=== PATIENT | male | born 1995 | race Caucasian/White ===

== ENCOUNTER 2020-10-06 14:54 | Emergency (ER) | payer SELFPAY ==
[~2020-10-06] VITALS: Ht 182.9 cm; Wt 72.7 kg
[~2020-10-06 14:54] MED LIST: NAPR-683 PO
[2020-10-06] MEDS ORDERED: DOXY100T PO (16:44)
--- NOTE | 2020-10-06 16:44 | ED.ADGEN ---
Past Medical History Past Medical History: Bipolar Additional Past Medical Histor: ADHD, scoliosis Past Surgical History: Knee Replacement, Tonsillectomy Additional Past Surgical Histo: ADENOIDECTOMY, TUES TO EARS Smoking Status: Current Every Day Smoker Alcohol Use: Occasionally Drug Use: None General Adult EDM: Chief Complaint: OTHER COMPLAINTS HPI: HPI: Patient is a 25 year old male, accompanied by his mother, who presents to the emergency room with complaints of coughing up blood after awakening today. He also complains of right upper posterior dental pain and swelling that began today. Patient reports that he has been nasal congestion with frequent throat clearing for several weeks. He also reports having generalized headache that is described as pressure behind his eyes for the last month. Patient reports that the headaches began after he had the osorio of a car fall on top of his head while he was changing oil. Patient denies any loss of consciousness without injury, he denies any numbness, tingling, or vision changes. Patient denies any ringing in his ears or ear pain. He also denies any fever, cough, shortness of breath, chest pain, abdominal pain, nausea, vomiting, or diarrhea. He currently rates the pain in his head a 10 out of 10 on the pain scale, he denies any alleviating or exacerbating factors. Patient states that he has continued to cough up some clear blood streaked sputum since he is arrived to the emergency room. He denies any recent nosebleeds. Review of Systems: Review of Systems: Complete ROS is negative unless otherwise noted in HPI. Allergies: Allergies: Allergies Coded Allergies Type Severity Reaction Last Updated Verified No Known Drug Allergies 11/01/14 No Physical Exam: PE: See Above Constitutional: Well developed, well nourished, no acute distress, non-toxic appearance. [] HENT: Normocephalic, atraumatic, bilateral external ears normal, cobblestone appearance of posterior pharynx with mild erythema, no tonsils present; there is mild edema to the posterior upper palate on the right with large amount of dental decay and broken teeth in the right upper quadrant, no visible or palpable dental abscess; bilateral nasal turbinates are erythematous and severely edematous consistent with rhinitis, nasal congestion is present Eyes: PERRLA, EOMI, conjunctiva normal, no discharge. [] Neck: Normal range of motion, supple, nontender,, no stridor. [] Cardiovascular:Heart rate regular rhythm Lungs & Thorax: Respirations even and unlabored, no retractions, no respiratory distress Skin: Warm, dry, no erythema, no rash. [] Extremities: No cyanosis, ROM intact, no edema. [] Neurologic: Alert and oriented X 3, no focal deficits noted. [] Psychologic: Affect normal, judgement normal, mood normal. [] Current Patient Data: Vital Signs: Vital Signs Date Time Temp Pulse Resp B/P (MAP) Pulse Ox O2 Delivery O2 Flow Rate FiO2 10/06/20 17:05 92 16 138/81 (100) 97 Room Air 10/06/20 15:40 98.1 98.1 EKG: EKG: [] Heart Score: C/O Chest Pain: No Risk Factors: Risk Factors: DM, Current or recent (<one month) smoker, HTN, HLP, family history of CAD, obesity. Risk Scores: Score 0 - 3: 2.5% MACE over next 6 weeks - Discharge Home Score 4 - 6: 20.3% MACE over next 6 weeks - Admit for Clinical Observation Score 7 - 10: 72.7% MACE over next 6 weeks - Early Invasive Strategies Radiology/Procedures: Radiology/Procedures: [] Course & Med Decision Making: Course & Med Decision Making Pertinent Labs and Imaging studies reviewed. (See chart for details) [] Dragon Disclaimer: [place] Disclaimer: This electronic medical record was generated, in whole or in part, using a voice recognition dictation system. Departure Departure Impression: Primary Impression: Infected dental caries Additional Impression: Rhinitis Disposition: 01 DC HOME SELF CARE/HOMELESS Condition: STABLE Referrals: NO PCP (PCP) Patient Instructions: Allergic Rhinitis, Dental Abscess Additional Instructions: Fill the prescription(s) and use as directed. Recommend that you take 10 mg of generic Zyrtec (cetirizine) or Claritin at bedtime and use over the counter Flonase (fluticasone) nasal spray 2 sprays each nostril once daily in the morning. You may take Tylenol or ibuprofen as needed for pain/fever. Increase clear fluids. Avoid triggers such as smoke, fragrance, dust, and pollen. Follow up with dentist using the referral list provided. Return to the ER if symptoms worsen. Follow-up with one of the primary care providers listed below if sympto ms persist, return to the ER if symptoms worsen or fever develops. [facility] [address] [place] [address] [facility] [address] [place] [address] [facility] [address] [facility] [place] [address] [facility] [address] [place] [address] [facility] [address] [place] [address] [address] [address] [place] [address] [facility] [address] [place] [address] [facility] [address] [place] [address] [facility] [address] [place] [address] [facility] [address] [place] [address] Scripts Doxycycline Hyclate (DOXYCYCLINE HYCLATE) 100 Mg Tablet 1 TAB PO BID for 10 Days, #20 TAB 0 Refills Prov: CHRISTINA GARNER APRN 10/06/20 Problem Qualifiers Additional Impression: Rhinitis Rhinitis type: unspecified Qualified Codes: J31.0 - Chronic rhinitis CHRISTINA GARNER APRN Oct 06, 2020 16:44
[2020-10-06 17:05] VITALS: BP 138/81
== END 2020-10-06 17:08 | disposition home or self-care (01) ==
LOC: ER 14:54
DX: K02.9 Dental caries, unspecified (principal); R09.81 Nasal congestion; R60.0 Localized edema; J31.0 Chronic rhinitis; F31.9 Bipolar disorder, unspecified; F17.200 Nicotine dependence, unspecified, uncomplicated; Z98.890 Other specified postprocedural states; Z90.89 Acquired absence of other organs
CPT/HCPCS: 99283

== ENCOUNTER 2021-06-19 16:49 | Emergency (ER) | payer SELFPAY ==
[~2021-06-19] VITALS: Ht 182.9 cm; Wt 73.0 kg
[~2021-06-19 16:49] MED LIST changes: +DOXY100T PO
--- NOTE | 2021-06-19 17:44 | RAD ---
XR HAND_RIGHT 3 VIEWS DATE: 06/19/2021 5:36 PM INDICATION: Laceration #2 digit MIP joint area lateral aspect rule out foreign body COMPARISON: None. FINDINGS: Bones: There is no evidence of acute fracture or dislocation. Joints: The joint spaces are normal. Miscellaneous: No radiopaque foreign bodies. IMPRESSION: No acute fracture or radiopaque foreign body. Electronically signed by: Nicola Lion MD (06/19/2021 5:41 PM) NUZHAT
[2021-06-19] MEDS: DIPH,PERTUSS(ACELL),TET VAC/PF 0.5 ML SYRINGE. VAX IM ONE (17:52)
[2021-06-19] MEDS: BACITRACIN TOPICAL OINT PACKET. TP ONE (17:52)
[2021-06-19] MEDS: LIDOCAINE 2% Multi-Dose 20 ML VIAL. IJ ONE (17:53)
[2021-06-19] MEDS: IBUPROFEN 200 MG TABLET. PO ONE (17:53)
--- NOTE | 2021-06-19 18:06 | PHYS DOC ---
Past Medical History Past Medical History: Bipolar Additional Past Medical Histor: ADHD, scoliosis (JONATHAN ARCINIEGA APRN) Past Surgical History: Other Additional Past Surgical Histo: RIGHT KNEE (JONATHAN ARCINIEGA APRN) Smoking Status: Current Every Day Smoker Additional Information: 1/2 PACK Alcohol Use: Occasionally Drug Use: None (JONATHAN ARCINIEGA APRN) General Adult EDM: Chief Complaint: LACERATION/AVULSION HPI: HPI: Patient is a 26-year-old male presents to the emergency department the chief complaint of laceration to his right hand just prior to arrival. Patient reports she was washing dishes when he cut his hand on a nikole jar that had a chip around its opening. Patient reports his last tetanus immunization was greater than 5 years ago. Patient reports pain at the laceration site, denies loss of sensation distally, denies loss of movement, reports it bled right away, reports he washed it with water and wrapped it with a bandage and came straight to the emergency department. Patient denies taking any medications prior to arrival to the emergency department. Patient denies taking prescription medications or [id number] medications at home. Denies allergies to medications. Denies other physical complaints or physical concerns. (JONATHAN ARCINIEGA APRN) Review of Systems: Review of Systems: 14 body systems of review of systems have been reviewed. See HPI for pertinent positives and negative responses, otherwise all other systems are negative, nonpertinent or noncontributory. Constitutional: Negative except as outlined in HPI above. Skin: Negative except as outlined in HPI above. Eyes: Negative except as outlined in HPI above. HENT: Negative except as outlined in HPI above. Respiratory: Negative except as outlined in HPI above. Cardiovascular: Negative except as outlined in HPI above. GI: Negative except as outlined in HPI above. : Negative except as outlined in HPI above. Musculoskeletal: Negative except as outlined in HPI above. Integument: Negative except as outlined in HPI above. Neurologic: Negative except as outlined in HPI above. Endocrine: Negative except as outlined in HPI above. Lymphatic: Negative except as outlined in HPI above. Psychiatric: Negative except as outlined in HPI above. (JONATHAN ARCINIEGA APRN) Heart Score: C/O Chest Pain: No Risk Factors: Risk Factors: DM, Current or recent (<one month) smoker, HTN, HLP, family history of CAD, obesity. Risk Scores: Score 0 - 3: 2.5% MACE over next 6 weeks - Discharge Home Score 4 - 6: 20.3% MACE over next 6 weeks - Admit for Clinical Observation Score 7 - 10: 72.7% MACE over next 6 weeks - Early Invasive Strategies (JONATHAN ARCINIEGA APRN) Current Medications: Current Medications Medications (Trade) Dose Ordered Sig/Yaritza Start Time Stop Time Status Last Admin Dose Admin Bacitracin (Bacitracin Zinc Oint Pkt) 1 pkt 1X ONCE 06/19/21 17:30 06/19/21 17:31 DC 06/19/21 17:52 1 PKT Diphtheria/ Tetanus/Acell Pertussis (ADACEL TDap SYRINGE) 0.5 ml ONCE ONCE 06/19/21 17:30 06/19/21 17:31 DC 06/19/21 17:52 0.5 ML Ibuprofen (Motrin) 600 mg 1X ONCE 06/19/21 17:30 06/19/21 17:31 DC 06/19/21 17:53 600 MG Lidocaine HCl (Lidocaine 2% 20ml Vial) 20 ml 1X ONCE 06/19/21 17:30 06/19/21 17:31 DC 06/19/21 17:53 20 ML (JONATHAN ARCINIEGA APRN) Allergies: Allergies: Allergies Coded Allergies Type Severity Reaction Last Updated Verified No Known Drug Allergies 11/01/14 No (JONATHAN ARCINIEGA APRN) Physical Exam: PE: Constitutional: Well developed, well nourished, no acute distress, non-toxic appearance. 26-year-old male in no apparent distress. HENT: Normocephalic, atraumatic. Eyes: Conjunctiva normal, no discharge. Neck: Normal range of motion, no stridor. Cardiovascular: No cyanosis appreciated, distal cap refill less than 2 seconds. Lungs & Thorax: Patient is in no respiratory distress, no audible adventitious lung sounds appreciated. Abdomen: Nontender, no abnormalities noted. Skin: Warm, dry, no erythema, no rash. See extremity note for focused skin examination. Back: No tenderness, no deformities. Extremities: No tenderness, no cyanosis, no clubbing, ROM intact, no edema. Except for right hand, 2.5 cm C-shaped partial-thickness skin laceration to the lateral aspect hand near MIP joint surface. Laceration does not extend into julisa pose tissue. Distal cap refill less than 2 seconds, bilateral radial pulses 2+, full flexion and extension abduction abduction of fingers of the right hand, no swelling or deformities appreciated. No paresthesias appreciated. Neurologic: Alert and oriented X 3, normal motor function, normal sensory function, no focal deficits noted. Psychologic: Affect normal, judgement normal, mood normal. (JONATHAN ARCINIEGA APRN) Current Patient Data: Vital Signs: Vital Signs Date Time Temp Pulse Resp B/P (MAP) Pulse Ox O2 Delivery O2 Flow Rate FiO2 06/19/21 16:55 98.4 95 16 135/77 (96) 98 Room Air 98.4 (JONATHAN ARCINIEGA APRN) EKG: EKG: [] (JONATHAN ARCINIEGA APRN) Radiology/Procedures: Radiology/Procedures: SEX: M EXAM STATUS: PRE ER ORD. PHYSICIAN: JONATHAN ARCINIEGA APRN REASON: Laceration #2 digit MIP joint area lateral aspect rule out foreign body PROCEDURE: HAND RIGHT 3V XR HAND_RIGHT 3 VIEWS DATE: 06/19/2021 5:36 PM INDICATION: Laceration #2 digit MIP joint area lateral aspect rule out foreign body COMPARISON: None. FINDINGS: Bones: There is no evidence of acute fracture or dislocation. Joints: The joint spaces are normal. Miscellaneous: No radiopaque foreign bodies. IMPRESSION: No acute fracture or radiopaque foreign body. Electronically signed by: Nicola Lion MD (06/19/2021 5:41 PM) NUZHAT (JONATHAN ARCINIEGA APRN) Course & Med Decision Making: Course & Med Decision Making Pertinent Labs and Imaging studies reviewed. (See chart for details) 26-year-old male, vital signs reviewed, reports to the emergency department concerning laceration to right hand while washing dishes just prior to arrival to the emergency department. Patient's physical examination presentation is consistent with patient's explanation of events. Patient denies homicidal jones icidal ideations. Patient reported his tetanus immunization was greater than 5 years ago, will bring up-to-date today in the emergency department with Adacel Tdap. Will order x-ray to rule out foreign body. See laceration repair note. No foreign body appreciated from x-ray report of right hand. Patient gave verbal understanding of discharge home instructions, laceration care, sutures out in 7 to 10 days, follow-up with primary care, return to ER precautions or concerns, patient had no further questions or concerns, is amenable to ED discharge planning, discussed with the patient all findings and diagnostic testing as well as the need to follow-up with their primary care provider for further evaluation and treatment or return to the ED if any new or worsening symptoms. Strict return precautions were also discussed at length, the patient voiced understanding and agreement with the discharge planning. The patient was nontoxic in appearance, in no apparent distress, and hemodynamically stable at the time of disposition. (JONATHAN ARCINIEGA APRN) Course & Med Decision Making Patients Care and treatment plan provided by ER Nurse Practitioner. I was available for consult. Patient's chart reviewed. (ROBBIE RM DO) Dragon Disclaimer: Dragon Disclaimer: This electronic medical record was generated, in whole or in part, using a voice recognition dictation system. (JONATHAN ARCINIEGA APRN) Laceration Repair Lac Repair Indication: Laceration right hand Time: 1814 Confirmed: Patient, procedure, side, and site correct. Consent: Patient, has given verbal consent. Description/repair Procedure: The patient was placed in the appropriate position and anesthesia around the achieved with 3 cc 2% lidocaine without epinephrine. The area was then cleansed with chlorhexidine scrub brush, rinsed with 500 cc normal saline. The laceration was closed for foreign bodies, there were no visual foreign b odies. The laceration was closed with 5 each interrupted sutures using 5-0 nylon the wound area was then dressed with bacitracin and bandage by ED nursing staff. Complexity: Single layer. Post procedure exam: Circulation, motor, sensory examination intact, bleeding controlled. Total repaired wound length: 2.5 cm. Other Items: No other items The patient tolerated the procedure well. Complications: There were no complications. Performed by: Jonathan Mukherjee, HOSPICE DIRECTOR-C Supervision: Dr. Rm was present for consult regarding the critical aspects of the procedure including closure and post procedure exam. Total time: 15 minutes. (JONATHAN ARCINIEGA APRN) Departure Departure Impression: Primary Impression: Laceration of right hand Qualified Codes: S61.411A - Laceration without foreign body of right hand, initial encounter Disposition: HOME / SELF CARE / HOMELESS Condition: GOOD Referrals: NO PCP (PCP) Patient Instructions: Laceration Care, Adult Additional Instructions: You were seen today in the emergency department for laceration to your right hand, this required 5 sutures that will require removal in 7 to 10 days. Please keep the suture site clean and dry, do not soak your hands in water or other liquids for any length of time. However please wash your laceration site gently with soap and water and pat dry, apply antibiotic ointment and bandage until sutures are removed in 7 to 10 days. Follow-up with your primary care physician for suture removal and reevaluation of sutured laceration. Your tetanus immunization has been brought up to date today in the emergency department with a medication called Adacel/Tdap, please update your immunization records accordingly. Return to the emergency department for worsening symptoms or other concerns. Thank you for visiting our Emergency Department. It was a pleasure taking care of you today in the emergency department and we appreciate you trusting us with your care. If any additional problems come up don't hesitate to return to visit us. Please follow up with your primary care provider so they can plan additional care if needed and know about the problem that you had. If symptoms worsen come back to the Emergency Department. Any concerning symptoms that start such as chest pain, shortness of air, weakness or numbness on one side of the body, running high fevers or any other concerning symptoms return to the ER. EMERGENCY DEPARTMENT GENERAL DISCHARGE INSTRUCTIONS Thank you for coming to [facility] Emergency Department (ED) today and trusting us with you care. We trust that you had a positive experience in our Emergency Department. If you wish to speak to the department management, you may call the Director at [phone]. YOUR FOLLOW UP INSTRUCTIONS ARE FOLLOWS: 1. Do you have a private Doctor? If you do not have a private doctor, please ask for a resource list of physicians or clinics that may be able to assist you with follow up care. 2. The Emergency Physicain has interpreted your x-rays. The X-Ray specialist will also review them. If there is a change in the findings, you will be notified in 48 hours when at all possible. 3. A lab test or culture has been done, your results will be reviewed and you will be notified if you need a change in treatment. ADDITIONAL INSTRUCTIONS AND INFORMATION: 1. Your care today has been supervised by a physician who is specially trained in emergency care. Many problems require more than one evaluation for a complete diagnosis and treatment. We recommend that you schedule your follow up appointment as recomme nded to ensure complete treatment of you illness or injury. If you are unable to obtain follow up care and continue to have a problem, or if your condition worsens, we recommend that you return to the ED. 2. We are not able to safely determine your condition over the phone nor are we able to give sound medical advice over the phone. For these safety reasons, if you call for medical advice we will ask you to come to the ED for further evaluation. 3. If you have any questions regarding these discharge instructions please call the ED at [phone]. SAFETY INFORMATION: In the interest of safety, wellness, and injury prevention; we encourage you to wear your sealbelt, if you smoke; quite smoking, and we encourage family to use a protective helmet for bicycling and other sporting events that present an increased risk for head injury. IF YOUR SYMPTOMS WORSEN OR NEW SYMPTOMS DEVELOP, OR YOU HAVE CONCERNS ABOUT YOUR CONDITION; OR IF YOUR CONDITION WORSENS WHILE YOU ARE WAITING FOR YOUR FOLLOW UP APPOINTMENT; EITHER CONTACT YOUR PRIMARY CARE DOCTOR, THE PHYSICIAN WHOSE NAME AND NUMBER YOU WERE GIVEN, OR RETURN TO THE ED IMMEDIATELY. JONATHAN ARCINIEGA APRN Jun 19, 2021 18:05 ROBBIE RM DO Jun 20, 2021 03:40
[2021-06-19 18:50] VITALS: BP 126/74
== END 2021-06-19 18:50 | disposition home or self-care (01) ==
LOC: ER 16:49
DX: S61.411A Laceration without foreign body of right hand, initial encounter (principal); F31.9 Bipolar disorder, unspecified; F90.9 Attention-deficit hyperactivity disorder, unspecified type; F17.200 Nicotine dependence, unspecified, uncomplicated; Y28.8XXA Contact with other sharp object, undetermined intent, initial encounter; Y93.89 Activity, other specified; Y92.89 Other specified places as the place of occurrence of the external cause; Y99.8 Other external cause status
CPT/HCPCS: 12001; 73130; 90471; 90715; 99283-25

== ENCOUNTER 2021-06-26 17:07 | Emergency (ER) | payer SELFPAY ==
[~2021-06-26] VITALS: Ht 182.9 cm; Wt 72.2 kg
[2021-06-26 17:20] VITALS: BP 125/71
--- NOTE | 2021-06-26 17:51 | PHYS DOC ---
Past Medical History Past Medical History: Bipolar Additional Past Medical Histor: ADHD, scoliosis Past Surgical History: No Surgical History Additional Past Surgical Histo: RIGHT KNEE Smoking Status: Never Smoker Alcohol Use: None Drug Use: None General Adult EDM: Chief Complaint: SUTURE/STAPLE REMOVAL HPI: HPI: Patient is a 26 year old male who presents with suture removal. Wound has hea led appropriately. Patient denies all complaints. No signs of infection Review of Systems: Review of Systems: ROS At least 10 ROS systems have been reviewed and are negative except as documented in the HPI. General: Negative except as outlined in HPI above. Skin: Negative except as outlined in HPI above. HEENT: Negative except as outlined in HPI above. Neck: Negative except as outlined in HPI above. Respiratory: Negative except as outlined in HPI above.. Cardiovascular: Negative except as outlined in HPI above. Abdomen: Negative except as outlined in HPI above. : Negative except as outlined in HPI above. Back/MSK: Negative except as outlined in HPI above. Neuro: Negative except as outlined in HPI above. Psych: Negative except as outlined in HPI above. Heart Score: C/O Chest Pain: No Risk Factors: Risk Factors: DM, Current or recent (<one month) smoker, HTN, HLP, family history of CAD, obesity. Risk Scores: Score 0 - 3: 2.5% MACE over next 6 weeks - Discharge Home Score 4 - 6: 20.3% MACE over next 6 weeks - Admit for Clinical Observation Score 7 - 10: 72.7% MACE over next 6 weeks - Early Invasive Strategies Allergies: Allergies: Allergies Coded Allergies Type Severity Reaction Last Updated Verified No Known Drug Allergies 06/26/21 No Physical Exam: PE: Constitutional: Well developed, well nourished, no acute distress, non-toxic appearance. [] HENT: Normocephalic, atraumatic, bilateral external ears normal, oropharynx moist, no oral exudates, nose normal. [] Eyes: PERRLA, EOMI, conjunctiva normal, no discharge. [] Neck: Normal range of motion, no tenderness, supple, no stridor. [] Cardiovascular:Heart rate regular rhythm, no murmur [] Lungs & Thorax: Bilateral breath sounds clear to auscultation [] Abdomen: Bowel sounds normal, soft, no tenderness, no masses, no pulsatile mas ses. [] Skin: Warm, dry, no erythema, no rash. [] Back: No tenderness, no CVA tenderness. [] Extremities: No tenderness, no cyanosis, no clubbing, ROM intact, no edema. [] Neurologic: Alert and oriented X 3, normal motor function, normal sensory function, no focal deficits noted. [] Psychologic: Affect normal, judgement normal, mood normal. [] Current Patient Data: Vital Signs: Vital Signs Date Time Temp Pulse Resp B/P (MAP) Pulse Ox O2 Delivery O2 Flow Rate FiO2 06/26/21 17:20 97.8 98 16 125/71 (89) 99 Room Air 97.8 EKG: EKG: [] Radiology/Procedures: Radiology/Procedures: [] Course & Med Decision Making: Course & Med Decision Making Pertinent Labs and Imaging studies reviewed. (See chart for details) [] 26-year-old male presents with suture removal. No signs of infection. Wound has healed appropriately. Patient denies all complaints. Dragon Disclaimer: Dragon Disclaimer: This electronic medical record was generated, in whole or in part, using a voice recognition dictation system. Departure Departure Impression: Primary Impression: Visit for suture removal Disposition: HOME / SELF CARE / HOMELESS Condition: STABLE Referrals: NO PCP (PCP) Patient Instructions: Suture Removal Additional Instructions: EMERGENCY DEPARTMENT GENERAL DISCHARGE INSTRUCTIONS Thank you for coming to [facility] Emergency Department (ED) today and trusting us with you care. We trust that you had a positive experience in our Emergency Department. If you wish to speak to the department management, you may call the Director at [phone]. YOUR FOLLOW UP INSTRUCTIONS ARE FOLLOWS: 1. Do you have a private Doctor? If you do not have a private doctor, please ask for a resource list of physicians or clinics that may be able to assist you with follow up care. 2. The Emergency Physicain has interpreted your x-rays. The X-Ray specialist will also review them. If there is a change in the findings, you will be notified in 48 hours when at all possible. 3. A lab test or culture has been done, your results will be reviewed and you will be notified if you need a change in treatment. ADDITIONAL INSTRUCTIONS AND INFORMATION: 1. Your care today has been supervised by a physician who is specially trained in emergency care. Many problems require more than one evaluation for a complete diagnosis and treatment. We recommend that you schedule your follow up appointment as recommended to ensure complete treatment of you illness or injury. If you are unable to obtain follow up care and continue to have a problem, or if your condition worsens, we recommend that you return to the ED. 2. We are not able to safely determine your condition over the phone nor are we able to give sound medical advice over the phone. For these safety reasons, if you call for medical advice we will ask you to come to the ED for further evaluation. 3. If you have any questions regarding these discharge instructions please call the ED at [phone]. SAFETY INFORMATION: In the interest of safety, wellness, and injury prevention; we encourage you to wear your sealbelt, if you smoke; quite smoking, and we encourage family to use a protective helmet for bicycling and other sporting events that present an increased risk for head injury. IF YOUR SYMPTOMS WORSEN OR NEW SYMPTOMS DEVELOP, OR YOU HAVE CONCERNS ABOUT YOUR CONDITION; OR IF YOUR CONDITION WORSENS WHILE YOU ARE WAITING FOR YOUR FOLLOW UP APPOINTMENT; EITHER CONTACT YOUR PRIMARY CARE DOCTOR, THE PHYSICIAN WHOSE NAME AND NUMBER YOU WERE GIVEN, OR RETURN TO THE ED IMMEDIATELY. COLLETTE KING APRN Jun 26, 2021 17:51
== END 2021-06-26 18:08 | disposition home or self-care (01) ==
LOC: ER 17:07
DX: S61.411D Laceration without foreign body of right hand, subsequent encounter (principal); F31.9 Bipolar disorder, unspecified; F90.9 Attention-deficit hyperactivity disorder, unspecified type; X58.XXXD Exposure to other specified factors, subsequent encounter
CPT/HCPCS: 99281

== ENCOUNTER 2021-07-30 10:37 | Emergency (ER) | payer SELFPAY ==
[~2021-07-30] VITALS: Ht 185.4 cm; Wt 75.1 kg
[2021-07-30 10:49] VITALS: BP 94/64
[2021-07-30 11:26] LABS: BILIRUBIN,URINE NEGATIVE (NEG); CLARITY,URINE CLEAR; COLOR,URINE YELLOW; NITRITE,URINE NEGATIVE (NEG); PH,URINE 7.5 (<5.0-8.0); PROTEIN,URINE NEGATIVE (NEG-TRACE); UROBILINOGEN,URINE 0.2 mg/dL (0.2 mg/dL)
[2021-07-30] MEDS ORDERED: valACYclovir 500 MG TABLET. PO ONE (11:30)
[2021-07-30] MEDS ORDERED: cefTRIAXone IM 500 MG VIAL. IM ONE (11:30)
[2021-07-30] MEDS ORDERED: DOXYCYCLINE HYCLATE 100 MG TABLET PO ONE (11:30)
--- NOTE | 2021-07-30 11:31 | PHYS DOC ---
Past Medical History Past Medical History: Bipolar Additional Past Medical Histor: ADHD, scoliosis Past Surgical History: No Surgical History Additional Past Surgical Histo: RIGHT KNEE Smoking Status: Never Smoker Alcohol Use: None Drug Use: None General Adult EDM: Chief Complaint: ITCHING HPI: HPI: Patient is a 26 year old male who presents with genital itching and dysuria for the past 3 days. Patient states he noticed some discomfort on urination beginning 3 days ago, but thought maybe he had a UTI. 2 days ago, he noticed an itching rash to his testicles and penis. Today, the dysuria intensified, leading him to present to the ER for evaluation. He also noticed a painful rash to his inner lower lip and sore throat beginning today. Patient reports he has had 2 sexual partners in the past 6 months. The first partner, which she reports he last had intercourse with over 3 months ago, told him recently that she was tested positively and treated for chlamydia. His most recent partner told him she tested positive for gonorrhea recently as well. Patient has never had a rash similar to this in the past. Patient denies fever, chills, urethral discharge, hematuria, testicular pain or swelling. Review of Systems: Review of Systems: Constitutional: Denies fever, chills or generalized weakness Eyes: Denies change in visual acuity, visual field deficits or discharge HENT: Denies ear pain, nasal congestion or sore throat Respiratory: Denies cough or shortness of breath Cardiovascular: Denies chest pain, palpitations or edema GI: Denies abdominal pain, nausea, vomiting, bloody stools or diarrhea : See HPI Musculoskeletal: Denies back pain or joint pain Integument: See HPI Neurologic: Denies headache, focal weakness or sensory changes Heart Score: C/O Chest Pain: No Allergies: Allergies: Allergies Coded Allergies Type Severity Reaction Last Updated Verified No Known Drug Allergies 06/26/21 No Physical Exam: PE: Constitutional: Well developed, well nourished, no acute distress, non-toxic appearance. HENT: Normocephalic, atraumatic, oropharynx moist, no oral exudates, no oropharyngeal erythema, slightly erythematous and raised vesicles noted to mucosa of interior lower lip, nose without deformity or discharge. Eyes: PERRLA, EOMI, conjunctiva normal, no discharge. Cardiovascular: Heart rate regular rhythm, no murmur. Lungs & Thorax: Bilateral breath sounds clear to auscultation. Abdomen: Bowel sounds normal, soft, no tenderness, no masses, no pulsatile masses. Genital: Penile shaft as well as scrotum have painful and erythematous ulcerative rash, base of the shaft of the penis also has vesicular rash, no urethral discharge, no testicular swelling or masses. Skin: See above for genital skin exam. Skin otherwise warm, dry, no erythema. Neurologic: Alert and oriented x4, steady and symmetrical gait, no focal deficits noted. Current Patient Data: Labs: Laboratory Tests Test 07/30/21 11:08 Urine Collection Type Void Urine Color Yellow Urine Clarity Clear Urine pH 7.5 (<5.0-8.0) Urine Specific [place] 1.020 (1.000-1.030) Urine Protein Negative mg/dL (NEG-TRACE) Urine Glucose (UA) Negative mg/dL (NEG) Urine Ketones (Stick) Negative mg/dL (NEG) Urine Blood Negative (NEG) Urine Nitrite Negative (NEG) Urine Bilirubin Negative (NEG) Urine Urobilinogen Dipstick 0.2 mg/dL (0.2 mg/dL) Urine Leukocyte Esterase Negative (NEG) Urine RBC 0 /HPF (0-2) Urine WBC Occ /HPF (0-4) Urine Squamous Epithelial Cells Occ /LPF Urine Bacteria 0 /HPF (0-FEW) Vital Signs: Vital Signs Date Time Temp Pulse Resp B/P (MAP) Pulse Ox O2 Delivery O2 Flow Rate FiO2 07/30/21 10:49 97.8 72 12 94/64 (74) 97 Room Air 97.8 Course & Med Decision Making: Course & Med Decision Making Pertinent Labs and Imaging studies reviewed. (See chart for details) Patient is an otherwise healthy 26-year-old male who has had multiple STI exposures in the past 6 months with active rash and dysuria. Patient will being treated empirically for gonorrhea/chlamydia as well as genital herpes. Urine sample obtained, blood work obtained to test for gonorrhea, chlamydia, syphilis, herpes simplex 1 & 2. Patient was given first dose of oral medications in the department. He is instructed to abstain from sex until his treatment is complete. He was also counseled on safe sex practices. Patient understands and is agreeable to discharge plan. Dragon Disclaimer: Dragon Disclaimer: This electronic medical record was generated, in whole or in part, using a voice recognition dictation system. Departure Departure Impression: Primary Impression: Gonococcal urethritis in male Additional Impression: Herpetic lesions Disposition: HOME / SELF CARE / HOMELESS Condition: STABLE Referrals: NO PCP (PCP) Patient Instructions: Genital Herpes, Herpes Labialis, Sexually Transmitted Disease, [id number] Additional Instructions: EMERGENCY DEPARTMENT GENERAL DISCHARGE INSTRUCTIONS Thank you for coming to [facility] Emergency Department (ED) today and trusting us with you care. We trust that you had a positive experience in our Emergency Department. If you wish to speak to the department management, you may call the Director at . YOUR FOLLOW UP INSTRUCTIONS ARE FOLLOWS: 1. Do you have a private doctor? If you do not have a private doctor, please ask for a resource list of physicians or clinics that may be able to assist you with follow up care. 2. A lab test or culture has been done, your results will be reviewed and you will be notified if you need a change in treatment. ADDITIONAL INSTRUCTIONS AND INFORMATION: 1. Your care today has been supervised by a physician who is specially trained in emergency care. Many problems require more than one evaluation for a complete diagnosis and treatment. We recommend that you schedule your follow up appointment as recommended to ensure complete treatment of you illness or injury. If you are unable to obtain follow up care and continue to have a problem, or if your condition worsens, we recommend that you return to the ED. 2. We are not able to safely determine your condition over the phone nor are we able to give sound medical advice over the phone. For these safety reasons, if you call for medical advice we will ask you to come to the ED for further evaluation. 3. If you have any questions regarding these discharge instructions please call the ED at . SAFETY INFORMATION: In the interest of safety, wellness, and injury prevention; we encourage you to wear your seat belt, if you smoke; quite smoking, and we encourage family to use a protective helmet for bicycling and other sporting events that present an increased risk for head injury. IF YOUR SYMPTOMS WORSEN OR NEW SYMPTOMS DEVELOP, OR YOU HAVE CONCERNS ABOUT YOUR CONDITION; OR IF YOUR CONDITION WORSENS WHILE YOU ARE WAITING FOR YOUR FOLLOW UP APPOINTMENT; EITHER CONTACT YOUR PRIMARY CARE DOCTOR, THE PHYSICIAN WHOSE NAME AND NUMBER YOU WERE GIVEN, OR RETURN TO THE ED IMMEDIATELY. Scripts Doxycycline Hyclate (DOXYCYCLINE HYCLATE) 100 Mg Capsule 1 CAP PO BID, #13 CAP Prov: GAY ENGEL 07/30/21 Valacyclovir Hcl (VALACYCLOVIR) 1,000 Mg Tablet 1 TAB PO BID for 7 Days, #13 TAB 0 Refills Prov: GAY ENGEL 07/30/21 GAY ENGEL Jul 30, 2021 11:31
[2021-07-30 11:39] LABS: RBC,URINE 0 /HPF (0-2)
[2021-07-30 11:42] LABS: BACTERIA,URINE 0 /HPF (0-FEW); WBC,URINE OCC /HPF (0-4)
[2021-07-30] MEDS ORDERED: DOXY100C3 PO (12:19)
[2021-07-30] MEDS ORDERED: VALA10008 PO (12:19)
== END 2021-07-30 12:30 | disposition home or self-care (01) ==
LOC: ER 10:37
DX: A54.01 Gonococcal cystitis and urethritis, unspecified (principal); K76.9 Liver disease, unspecified; F31.9 Bipolar disorder, unspecified; F90.9 Attention-deficit hyperactivity disorder, unspecified type
CPT/HCPCS: 81001; 86592; 87491; 87591; 96372; 99283; J0696

== ENCOUNTER 2021-07-31 12:28 | Emergency (ER) | payer SELFPAY ==
[~2021-07-31] VITALS: Ht 185.4 cm; Wt 75.1 kg
[~2021-07-31 12:28] MED LIST changes: +DOXY100C3 PO; +VALA10008 PO
--- NOTE | 2021-07-31 17:16 | PHYS DOC ---
Past Medical History Past Medical History: Bipolar Additional Past Medical Histor: ADHD, scoliosis Past Surgical History: No Surgical History Additional Past Surgical Histo: RIGHT KNEE Smoking Status: Never Smoker Alcohol Use: None Drug Use: None General Adult EDM: Chief Complaint: SEXUALLY TRANSMITTED DISEASE HPI: HPI: Patient is a 26 year old male who presents for treatment for syphilis. Patient was seen in the emergency department yesterday. He was notified by phone that he tested positive for syphilis, and would need to return to the department for treatment. Review of Systems: Review of Systems: ROS negative or noncontributory except as mentioned in HPI. Heart Score: C/O Chest Pain: No Current Medications: Current Medications Medications (Trade) Dose Ordered Sig/Yaritza Start Time Stop Time Status Last Admin Dose Admin Penicillin G Benzathine (Bicillin L-A) 2,400,000 unit 1X ONCE 07/31/21 17:30 07/31/21 17:31 Allergies: Allergies: Allergies Coded Allergies Type Severity Reaction Last Updated Verified No Known Drug Allergies 06/26/21 No Physical Exam: PE: Constitutional: Well developed, well nourished, disheveled, no acute distress, non-toxic appearance. Cardiovascular: Heart rate regular rhythm, no murmur. Lungs & Thorax: Bilateral breath sounds clear to auscultation. Neurologic: Alert and oriented x4, steady and symmetrical gait, no focal deficits noted. Current Patient Data: Vital Signs: Vital Signs Date Time Temp Pulse Resp B/P (MAP) Pulse Ox O2 Delivery O2 Flow Rate FiO2 07/31/21 14:59 98.0 64 10 119/59 (79) 98 Room Air 98.0 Course & Med Decision Making: Course & Med Decision Making Pertinent Labs and Imaging studies reviewed. (See chart for details) Patient was seen and evaluated in the emergency department yesterday for genital rash and some oral lesions. Patient reports medication compliance with the medications he was prescribed yesterday. He presents today for additional treatment for syphilis. Penicillin IM given in department. Patient is advised to continue taking medications prescribed yesterday. Patient understands and is agreeable to discharge plan [place] Disclaimer: [place] Disclaimer: This electronic medical record was generated, in whole or in part, using a voice recognition dictation system. Departure Departure Impression: Primary Impression: Early syphilis, genital (primary) Additional Impression: STI (sexually transmitted infection) Disposition: HOME / SELF CARE / HOMELESS Condition: STABLE Referrals: NO PCP (PCP) GAY ENGEL Jul 31, 2021 17:16
[2021-07-31] MEDS ORDERED: PENICILLIN G BENZATHINE LA 2,400,000 UNIT/4 ML DISP.SYRIN. IM ONE (17:30)
[2021-07-31 18:15] VITALS: BP 127/61
== END 2021-07-31 18:15 | disposition home or self-care (01) ==
LOC: ER 12:28
DX: A51.9 Early syphilis, unspecified (principal); A64 Unspecified sexually transmitted disease
CPT/HCPCS: 96372; 99283; J0561

== ENCOUNTER 2021-08-01 21:26 | Emergency (ER) | payer SELFPAY ==
[~2021-08-01] VITALS: Ht 185.4 cm; Wt 75.0 kg
[2021-08-01 22:10] VITALS: BP 125/68
--- NOTE | 2021-08-01 23:07 | PHYS DOC ---
Past Medical History Past Medical History: Bipolar Additional Past Medical Histor: ADHD, scoliosis Past Surgical History: Other Additional Past Surgical Histo: RIGHT KNEE Smoking Status: Never Smoker Alcohol Use: Rarely Drug Use: Marijuana General Adult EDM: Chief Complaint: ALLERGIC REACTION HPI: HPI: Patient is a 26 year old male who presents with a chief complaint of bilateral hip / leg stiffness with limited ability to ambulate x 24 hours. Patient was diagnosed and treated for syphilis two days prior to current symptom onset. Patient states that his pain is 10/10, tylenol has helped, palpation or movement makes it worse, denies any associated symptoms or radiation. Review of Systems: Review of Systems: Constitutional: Denies fever or chills Eyes: Denies redness or eye pain HENT: Denies nasal congestion or sore throat Respiratory: Denies cough or shortness of breath Cardiovascular: Denies chest pain or palpitations GI: Denies abdominal pain, nausea, or vomiting : Denies dysuria or hematuria Musculoskeletal: reports diffuse lower extremity pain and weakness Integument: Denies rash or skin lesions Neurologic: Denies headache, displays diffuse lower extremity weakness Complete systems were reviewed and found to be within normal limits, except as documented in this note. Heart Score: C/O Chest Pain: N/A Allergies: Allergies: Allergies Coded Allergies Type Severity Reaction Last Updated Verified No Known Drug Allergies 06/26/21 No Physical Exam: PE: Constitutional: Well developed, well nourished, no acute distress, non-toxic appearance HENT: Normocephalic, atraumatic Eyes: , conjunctiva normal, no discharge Neck: Normal range of motion, no tenderness, supple Lungs & Thorax: No respiratory distress, equal chest rise and fall Abdomen: Soft, no tenderness Skin: Warm, dry, no erythema, no rash Back: No tenderness, no CVA tenderness Extremities: No tenderness, ROM intact, no edema, Neurologic: Alert and oriented X 3, decreased motor function in bilateral lower extremitys, LE DTR 2+ bilaterally normal sensory function, Psychologic: Affect normal, judgment normal Current Patient Data: Vital Signs: Vital Signs Date Time Temp Pulse Resp B/P (MAP) Pulse Ox O2 Delivery O2 Flow Rate FiO2 08/01/21 22:10 98.0 98 20 125/68 (87) 96 Room Air 98.0 EKG: EKG: [] Radiology/Procedures: Radiology/Procedures: [] Course & Med Decision Making: Course & Med Decision Making Patient presents with a chief complaint of diffuse bilateral lower extremity pain and stiffness after receiving appropriate treatment for syphilis the day prior. Patient was informed that this is most likely nonspecific musculoskeletal pain from the injection paired with inactivity following the injection. Pain addressed and treated. Patient stable for discharge with outpatient follow-up with PCP. Discussed findings and plan with patient, who acknowledges understanding and agreement. Dragon Disclaimer: Dragon Disclaimer: This electronic medical record was generated, in whole or in part, using a voice recognition dictation system. Departure Departure Impression: Primary Impression: Muscle soreness Disposition: HOME / SELF CARE / HOMELESS Condition: STABLE Referrals: NO PCP (PCP) Patient Instructions: Intramuscular Injections, How and Where to Give Additional Instructions: Your symptoms are more likely secondary to irritation sustained by receiving bilateral intramuscular injections. Ice areas of discomfort 20 minutes on then leave off for next 20 minutes. May also interchange heat. Use [id number] ibuprofen and/or Tylenol for pain or discomfort. It would be advised to stretch these muscles and to use them. Refrain from inactivity. ЕКАТЕРИНА MARSHALL DO Aug 01, 2021 23:07
[2021-08-01] MEDS ORDERED: IBUPROFEN 200 MG TABLET. PO ONE (23:30)
== END 2021-08-01 23:30 | disposition home or self-care (01) ==
LOC: ER 21:26
DX: M25.552 Pain in left hip (principal); M25.551 Pain in right hip; M79.10 Myalgia, unspecified site; F31.9 Bipolar disorder, unspecified; F90.9 Attention-deficit hyperactivity disorder, unspecified type
CPT/HCPCS: 99282